=== PATIENT | male | born 1990 | race Hispanic/Latino ===

== ENCOUNTER 2016-12-16 19:20 | Emergency (ER) | payer OTHER ==
[2016-12-16] MEDS ORDERED: Adacel (T-DAP) 0.5 ML VIAL ONE (19:36)
[2016-12-16] MEDS ORDERED: Cephalexin 250 MG CAP ONE (19:36)
[2016-12-16] MEDS ORDERED: Triple Antibiotic Oint 1 GM Packet ONE (19:38)
== END 2016-12-16 20:53 | disposition home or self-care (01) ==
LOC: BURERS 19:20
DX: S61.211A Laceration without foreign body of left index finger without damage to nail, initial encounter (principal); Z79.899 Other long term (current) drug therapy; W26.0XXA Contact with knife, initial encounter
CPT/HCPCS: 90715; 99283